=== PATIENT | male | born 1995 | race Caucasian/White ===

== ENCOUNTER 2022-11-26 13:15 | Day surgery (SDC) | payer OTHER ==
[2022-11-23 13:34] VITALS: BMI 24.3
[2022-11-26 14:46] VITALS: RESP 19; TEMP 98
[2022-11-26 15:40] VITALS: BP 112/62; PULSE 62
== END 2022-11-26 15:15 | disposition home or self-care (01) ==
LOC: FASU-ENDO 13:15
PROVIDERS: ATTEND Internal Medicine Gastroenterology
PROC: 0DBN8ZX Excision of Sigmoid Colon, Via Natural or Artificial Opening Endoscopic, Diagnostic (ICD-10-PCS; principal; 2022-11-26 14:04)
DX: K56.699 Other intestinal obstruction unspecified as to partial versus complete obstruction (principal); K59.89 Other specified functional intestinal disorders; R93.3 Abnormal findings on diagnostic imaging of other parts of digestive tract
CPT/HCPCS: 88305-TC